=== PATIENT | male | born 1975 | race Caucasian/White ===

== ENCOUNTER 2018-12-15 05:55 | Day surgery (SDC) | payer OTHER ==
[~2018-12-15] VITALS: Ht 182.9 cm; Wt 95.2 kg
--- NOTE | 2018-12-15 08:40 | NUR ---
12/15/18 0840 Jennifer Cornejo 0822- PT ARRIVES TO PACU AROUSABLE TO VOICE. RESP EVEN AND UNLABORED. OXYGEN SAT MID TO HIGH 90'S ON 6L VIA MASK. GUARDS AT THE BEDSIDE. PT'S RIGHT ARM IN A SHOULDER IMMOBILIZER.
--- NOTE | 2018-12-15 09:15 | NUR ---
ICED WATER AND PUDDING GIVEN. OFFICERS @ [facility]. [facility] [place] ON WARM.
[2018-12-15] MEDS ORDERED: ULTRAM50 MG PO (09:45)
--- NOTE | 2018-12-15 10:13 | NUR ---
PATIENT UP TO THE BATHROOM WITH OFFICER STANDBY. PATIENT AMBULATES WELL AND VOIDS. DC INSTRUCTIONS GIVEN AND PATIENT VERBALIZES UNDERSTANDING. PATIENT GETTING DRESSED IN OFFICER PRESENCE.
--- NOTE | 2018-12-15 11:00 | NUR ---
CALL REPORT GIVEN TO TOÑO MATSON AND HER QUESTIONS ARE ANSWERED.
--- NOTE | 2018-12-15 13:49 | OR ---
[facility] [address] [place], [place] [address] Signed DATE OF OPERATION: 12/15/2018 SURGEON: Héctor Baez MD PREOPERATIVE DIAGNOSIS: Labral tear, right shoulder. POSTOPERATIVE DIAGNOSIS: Labral tear, right shoulder. PROCEDURE: Labral repair right shoulder. ANESTHESIA: General. SPECIMENS AND COMPLICATIONS: There were no specimens or complications. BLOOD LOSS: Minimal. WHAT WAS DONE: The patient was taken to the operating room. After anesthesia was induced and the airway secured, the patient was placed in the modified beach chair position. He was then prepped and draped in a routine sterile fashion. The bony topography was outlined with a skin marking pen and the arthroscope was inserted through the standard posterior portal. Diagnostic arthroscopy revealed an unremarkable humeral head and unremarkable glenoid. The biceps tendon, the biceps anchor, and the rotator cuff were unremarkable. There was about a 9-11 mm tear on the labrum beginning just anterior to the biceps and extending to about the 2 o'clock position. An anterior portal was created using a switching stick technique and the labrum was probed and found to be relatively mobile. We therefore created an auxiliary anterolateral portal and to it introduced the VAPR electrosurgical device. We used this to remove the soft tissue off the anterior aspect of the scapular neck. We then placed the justyn and gently decorticated the anterior aspect of the neck. After happy with the preparation of the bed, single #2 FiberLoop was introduced using a 90-degree SutureLasso. We snugged it down and then secured it with a single PushLock. This gave us an excellent and sturdy repair. We cut off the FiberLink suture and irrigated the Electronically Signed By: HÉCTOR BEAZ MD 12/15/18 1349 PATIENT NAME: MIKA SRIVASTAVA OPERATIVE REPORT DATE OF : 77 REPORT #: [id number] PHYSICIAN: HÉCTOR BAEZ MD PCP: OLIMPIA NI MD REPORT IS CONFIDENTIAL AND NOT TO BE RELEASED WITHOUT AUTHORIZATION [facility] [address] [place], [place] [address] Signed shoulder. All of the instruments were withdrawn, the portals were closed, and sterile dressings applied. He was placed in an abduction brace and awakened and taken to the recovery room where he was arrived in stable condition. Counts were correct and antibiotic protocols were followed. Héctor Baez MD WFB/MODL /[id number] Copies: ~ Electronically Signed By: HÉCTOR BAEZ MD 12/15/18 1349 PATIENT NAME: MIKA SRIVASTAVA OPERATIVE REPORT DATE OF : 77 REPORT #: [id number] PHYSICIAN: HÉCTOR BAEZ MD PCP: OLIMPIA NI MD REPORT IS CONFIDENTIAL AND NOT TO BE RELEASED WITHOUT AUTHORIZATION
== END 2018-12-15 10:20 | disposition home or self-care (01) ==
LOC: DS 05:55 → OPS 05:55 → DS 06:45 → OPS 10:20
PROVIDERS: Orthopaedic Surgery
PROC: 0MM14ZZ Reattachment of Right Shoulder Bursa and Ligament, Percutaneous Endoscopic Approach (ICD-10-PCS; principal; 2018-12-15 06:45)
DX: S43.491A Other sprain of right shoulder joint, initial encounter (principal)
CPT/HCPCS: 01630; 64415; 76942; C1713; J0330; J0690; J1100; J1885; J2250; J2405; J2704; J2795; J3010; J7120